=== PATIENT | female | born 1980 | race American Indian/Alaskan Native ===

== ENCOUNTER 2020-10-17 15:39 | Emergency (ER) | payer MEDICAID ==
[2020-10-17 18:15] LABS: Basophils # (Auto) 0.1 K/mm3 (0.0-0.1); Basophils % (Auto) 0.6 % (0.0-1.8); Eosinophils # (Auto) 0.4 K/mm3 (0.0-0.4); Eosinophils % (Auto) 4.1 % (0.0-4.3); Hematocrit 36.6 % (30.3-42.9); Hemoglobin 11.8 gm/dl (10.1-14.3); Lymphocytes # (Auto) 3.3 K/mm3 (1.2-5.4); Lymphocytes % (Auto) 37.8 % (13.4-35.0); Mean Corpuscular HGB Conc 32 % (30-34); Mean Corpuscular Volume 79 fl (79-97); Monocytes # (Auto) 0.5 K/mm3 (0.0-0.8); Platelet Count 248 K/mm3 (140-440); Red Blood Count 4.63 M/mm3 (3.65-5.03); Red Cell Distribution Width 17.7 % (13.2-15.2)
[2020-10-17 18:36] LABS: Alanine Aminotransferase 27 units/L (7-56); Albumin 4.2 g/dL (3.9-5); BUN/Creatinine Ratio 13; Blood Urea Nitrogen 10 mg/dL (7-17); Calcium 9.2 mg/dL (8.4-10.2); Hemolysis Index 11
[2020-10-17] MEDS ORDERED: ONDANSETRON 4 MG/2 ML INJ IV ONE (21:27)
[2020-10-17] MEDS ORDERED: KETOROLAC 30 MG/1 ML INJ IV ONE (21:27)
[2020-10-17] MEDS ORDERED: MORPHINE 4 MG/1 ML INJ IV ONE (21:27)
[2020-10-17] MEDS ORDERED: HYDROmorphone 1 MG/1 ML INJ IV ONE (23:28)
[2020-10-18 00:42] VITALS: BP 129/86
== END 2020-10-18 01:59 | disposition home or self-care (01) ==
LOC: ED 15:39
DX: S09.90XA Unspecified injury of head, initial encounter (principal); S16.1XXA Strain of muscle, fascia and tendon at neck level, initial encounter; S80.01XA Contusion of right knee, initial encounter; K21.9 Gastro-esophageal reflux disease without esophagitis; J45.909 Unspecified asthma, uncomplicated; Z98.890 Other specified postprocedural states; Z79.899 Other long term (current) drug therapy; Z88.8 Allergy status to other drugs, medicaments and biological substances; V49.59XA Passenger injured in collision with other motor vehicles in traffic accident, initial encounter; Y93.89 Activity, other specified; Y92.410 Unspecified street and highway as the place of occurrence of the external cause; Y99.8 Other external cause status
CPT/HCPCS: 36415; 70450; 71045; 72125; 73562; 74018; 80053; 84703; 85025; 96374; 96375; 99284; J1170; J1885; J2270; J2405

== ENCOUNTER 2020-12-19 03:17 | Emergency (ER) | payer MEDICAID ==
[2020-12-19 05:40] LABS: Hematocrit 36.1 % (30.3-42.9); Hemoglobin 11.9 gm/dl (10.1-14.3); Mean Corpuscular HGB Conc 33 % (30-34); Mean Corpuscular Volume 80 fl (79-97); Platelet Count 275 K/mm3 (140-440); Red Blood Count 4.51 M/mm3 (3.65-5.03); Red Cell Distribution Width 16.8 % (13.2-15.2)
[2020-12-19 05:54] LABS: Basophils % (Auto) 0.6 % (0.0-1.8); Eosinophils # (Auto) 0.1 K/mm3 (0.0-0.4); Eosinophils % (Auto) 1.1 % (0.0-4.3); Lymphocytes # (Auto) 2.3 K/mm3 (1.2-5.4); Lymphocytes % (Auto) 33.1 % (13.4-35.0); Monocytes # (Auto) 0.5 K/mm3 (0.0-0.8); Monocytes % (Auto) 7.6 % (0.0-7.3)
[2020-12-19 05:57] LABS: Alanine Aminotransferase 37 units/L (7-56); Albumin 4.4 g/dL (3.9-5); BUN/Creatinine Ratio 16; Blood Urea Nitrogen 14 mg/dL (7-17); Calcium 9.5 mg/dL (8.4-10.2); Hemolysis Index 3
--- NOTE | 2020-12-19 06:22 | XRay Report ---
CHEST 1 VIEW 05/16/2009 1:01 AM INDICATION / CLINICAL INFORMATION: cough and fever. COMPARISON: 10/17/20 FINDINGS: SUPPORT DEVICES: None. HEART / MEDIASTINUM: No significant abnormality. LUNGS / PLEURA: No significant pulmonary or pleural abnormality. No pneumothorax. ADDITIONAL FINDINGS: No significant additional findings. IMPRESSION: 1. No acute findings. Signer Name: Rachael Vazquez MD Signed: 12/19/2020 6:18 AM Workstation Name: [id number]
[2020-12-19] MEDS ORDERED: dexAMETHasone 20 MG/5 ML VIAL IV ONE (06:48)
[2020-12-19] MEDS ORDERED: MORPHINE 4 MG/1 ML INJ IV ONE (06:48)
[2020-12-19] MEDS ORDERED: SODIUM CHLORIDE 0.9% 1000 ML 1,000 ML IV ONE (06:48)
[2020-12-19] MEDS ORDERED: KETOROLAC 30 MG/1 ML INJ IV ONE (06:49)
[2020-12-19] MEDS ORDERED: ONDANSETRON 4 MG/2 ML INJ IV ONE (06:49)
--- NOTE | 2020-12-19 06:57 | Emergency Department Report ---
ED Fever HPI - General Chief Complaint: Headache Stated Complaint: POSS COVID SYMPTOMS Time Seen by Provider: 12/19/20 06:48 - History of Present Illness Initial Comments: CC: "I need a Covid test. My brother has COVID. Everyone in the house has symptoms." HPI: This is a 40 yo female with hx of pseudotumor cerebri with PAN SHOVER shunt in place, meningitis asthma, GERD, bipolar disorder, schizophrenia, blindness who presents with fever, headache, body aches, loss of taste and smell, cough and vomiting. She is concerned about PAN SHOVER shunt functioning appropriately. Her brain is "burning". Patient's personal neurosurgeon is Dr. Osmani Willingham. She is not vaccinated for COVID-19. Timing/Duration: constant Fever Severity/Quality: subjective Fever Therapy MEDICAL PATHOLOGIST: cold remedies Associated Symptoms: cough, headache, muscle aches, nausea/vomiting ED Review of Systems ROS: Stated complaint: POSS COVID SYMPTOMS Other details as noted in HPI Comment: All other systems reviewed and negative Constitutional: chills, fever, malaise Respiratory: cough Cardiovascular: denies: chest pain Gastrointestinal: nausea, vomiting ED Past Medical Hx - Past Medical History Previous Medical History?: Yes Hx GERD: Yes Hx Psychiatric Treatment: Yes (Anxiety, Bipolar, Schizophrenia) Hx Asthma: Yes Additional medical history: brain and spine shunt, brain tumor, totally blind - Surgical History Past Surgical History?: Yes Additional Surgical History: shunt, GB, craniotomy, mult lap surgeries - Social History Smoking Status: Current Every Day Smoker Substance Use Type: None - Medications Home Medications: Home Medications Medication Instructions Recorded Confirmed Last Taken Type Ketorolac [Toradol] 10 mg PO Q6H PRN #20 tablet 10/18/20 Unknown Rx Ondansetron [Zofran Odt] 4 mg PO Q8HR #20 tab.rapdis 10/18/20 Unknown Rx oxyCODONE /ACETAMINOPHEN [Percocet 1 tab PO Q6HR PRN #10 tablet 10/18/20 Unknown Rx 5/325] ED Physical Exam - General Limitations: No Limitations General appearance: alert, in no apparent distress - Head Head exam: Present: atraumatic, normocephalic - Eye Eye exam: Present: other (Patient wearing glasses history of blindness) - ENT ENT exam: Present: mucous membranes moist - Neck Neck exam: Present: normal inspection, full ROM - Respiratory Respiratory exam: Present: normal lung sounds bilaterally. Absent: respiratory distress, wheezes, rales, rhonchi - Cardiovascular Cardiovascular Exam: Present: regular rate, normal rhythm, normal heart sounds. Absent: systolic murmur, diastolic murmur, rubs, gallop - GI/Abdominal GI/Abdominal exam: Present: soft, normal bowel sounds. Absent: distended, tenderness, guarding, rebound - Extremities Exam Extremities exam: Present: normal inspection - Neurological Exam Neurological exam: Present: alert, oriented X3 - Psychiatric Psychiatric exam: Present: normal affect, normal mood - Skin Skin exam: Present: warm, dry, intact, normal color. Absent: rash ED Course Vital Signs 12/19/20 04:36 Temperature 98.7 F Pulse Rate 111 H Respiratory 18 Rate Blood Pressure 153/100 [Left] O2 Sat by Pulse 99 Oximetry ED Medical Decision Making - Lab Data Result diagrams: 12/19/20 05:14 12/19/20 05:14 - Radiology Data Radiology results: report reviewed [facility] [address] [place] [address] XRay Report Signed Patient: DAYANNA DAWKINS MR#: [id number] 4 : 1980 Acct:[id number] Age/Sex: 40 / F ADM Date: 12/19/20 Loc: ED Attending Dr: Ordering Physician: MOHAN MA MD Date of Service: 12/19/20 Procedure(s): XR chest 1V ap Accession Number(s): [id number] cc: ED MD FRANCESCA Fluoro Time In Minutes: CHEST 1 VIEW 05/16/2009 1:01 AM INDICATION / CLINICAL INFORMATION: cough and fever. COMPARISON: 10/17/20 FINDINGS: SUPPORT DEVICES: None. HEART / MEDIASTINUM: No significant abnormality. LUNGS / PLEURA: No significant pulmonary or pleural abnormality. No pneumothorax. ADDITIONAL FINDINGS: No significant additional findings. IMPRESSION: 1. No acute findings. Signer Name: Rachael Vazquez MD Signed: 12/19/2020 6:18 AM Workstation Name: [id number] Transcribed By: DT Dictated By: Nathanael Vazquez MD Electronically Authenticated By: Nathanael Vazquez MD Signed Date/Time: 12/19/20617 DD/ 2 TD/TT: - Medical Decision Making 1. Suspected COVID-19 infection with symptoms which caused her to typical syndrome. Patient has normal oxygen saturation without pneumonia on chest radiograph. Patient given supportive comfort care in the emergency department i ncluding IV fluid normal saline bolus, IV morphine, IV Zofran, IV ketorolac, dexamethasone. 2. Headache with history of PAN SHOVER shunt: No evidence of hydrocephalus on CT scan. No meningismus or toxic appearance to indicate meningitis. Headache attributed to viral syndrome suspected COVID-19. Critical care attestation.: If time is entered above; I have spent that time in minutes in the direct care of this critically ill patient, excluding procedure time. ED Disposition Clinical Impression: Suspected COVID-19 virus infection Disposition: DC-01 TO HOME OR SELFCARE Is pt being admited?: No Does the pt Need Aspirin: No Condition: Stable Instructions: COVID-19 Referrals: PRIMARY CARE, [Primary Care Provider] - 3-5 Days
--- NOTE | 2020-12-19 08:17 | Cat Scan Report ---
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 TECHNIQUE: All CT scans at this location are performed using CT dose reduction for ALARA by means of automated e xposure control. COMPARISON: Head CT 10/17/2020 FINDINGS: There is no evidence of hemorrhage, hydrocephalus, brain edema, or mass effect/mass lesion. There is overall normal brain formation and brain volume for the patient's age. Ventricular and cisternal/sulc al size is normal for age. Tract in the right frontal lobe from remote prior [employer] DAT[employer] SPECIALIST shunt appears unchang ed. The included paranasal sinuses and mastoid air cells are clear. The orbits appear unremarkable. IMPRESSION: 1. No acute intracranial abnormality or adverse change from prior. Signer Name: Jerry Morejon MD Signed: 12/19/2020 8:13 AM Workstation Name: [id number]
[2020-12-19 14:50] VITALS: BP 124/91
== END 2020-12-19 14:49 | disposition home or self-care (01) ==
LOC: ED 03:17
DX: Z20.822 Contact with and (suspected) exposure to COVID-19 (principal); R43.8 Other disturbances of smell and taste; K21.9 Gastro-esophageal reflux disease without esophagitis; F31.9 Bipolar disorder, unspecified; F41.8 Other specified anxiety disorders; F17.200 Nicotine dependence, unspecified, uncomplicated
CPT/HCPCS: 36415; 70450; 71045; 80053; 84703; 85025; 96361; 96374; 96375; 99285; J1100; J1885; J2270; J2405; J7030